=== PATIENT | male | born 1970 | race Caucasian/White ===

== ENCOUNTER 2022-01-20 22:05 | Emergency (ER) | payer SELFPAY ==
[2022-01-20 22:07] VITALS: BP 139/93; PULSE 83; RESP 16; TEMP 36.6; O2SAT 100; BMI 22.8
--- NOTE | 2022-01-21 02:06 | EDS_ITS ---
HPI History of Present Illness Chief Complaint: Other, Pain/Inj Narrative Narrative: Patient is a 51-year-old male who states he does a lot of lifting and pulling at work. He states he is not remember 1 specific injury but noted that he now has pain and swelling in the left lower inguinal region. His states she was doing some research and believes he does have a hernia and secondary to this presents for evaluation. Patient denies any fevers or chills dysuria hematuria or difficulty using the restroom. PFSH PFSH Medical History no medical history Home Medications NK 01/21/22 [History Last Taken Unknown] Allergy/AdvReac Type Severity Reaction Status Date / Time No Known Allergies Allergy Verified 01/20/22 22:09 Social History Smoking Status: Current every day smoker tobacco type: cigarettes ROS ROS ED Constitutional Constitutional ED: Denies chills or fever(s) ENT ENT ED: Denies sore throat Cardiovascular Cardiovascular: Denies chest pain Respiratory/Chest Respiratory/Chest: Denies cough or dyspnea Gastrointestinal Gastrointestinal: Reports abdominal pain; Denies diarrhea, nausea or vomiting Genitourinary Genitourinary ED: Denies dysuria, hematuria or urinary frequency Musculoskeletal Musculoskeletal: Denies back pain or myalgias Integumentary Denies rash Neurologic Neurologic: Denies headache(s) Hematologic/Lymphatic Hematologic/Lymphatic: Denies easy bleeding or easy bruising EXAM Physical Exam Const Vital Signs: 01/20/22 22:07 01/21/22 01:30 Temperature 98 F Temperature Source Temporal Pulse Rate 83 Respiratory Rate 16 Respiratory Effort Normal Respiratory Pattern Normal Blood Pressure 139/93 H Blood Pressure Mean 108 Pulse Ox 100 Oxygen Delivery Method Room Air Positive well nourished and well developed General Appearance ED: well developed HEENT Reports moist mucous membranes Eyes PERRL and EOMs intact bilaterally Neck supple Resp normal respiratory effort and clear to auscultation bilaterally Cardio regular rate and regular rhythm GI non-tender and non-distended Auscultation: normoactive bowel sounds Palpation: soft Narrative: Normal circumcised male without blood or discharge from the urethral meatus. There is no testicular swelling or masses noted no overlying soft tissue changes to suggest trauma or infection. Patient does have a defect in the left inguinal region consistent with inguinal hernia that has reducible intestinal contents present. Extremity normal to inspection Neuro oriented x3 and CN's II-XII intact bilaterally Sensorium / Orientation: alert Psych mental status grossly normal Skin no rashes or lesions noted MDM MDM MDM Narrative Medical decision making narrative: Patient presented to the ER with stable vitals and a history and exam that is c onsistent with a direct inguinal hernia. At this time he has no signs of incarceration no signs of bowel obstruction and no signs of overlying soft tissue infection. Therefore there is no need for further work-up and patient can be discharged home and follow-up with general surgery to discuss need for fixation. Discharge Plan Triage Chief Complaint: Other, Pain/Inj ED Provider: Chicho Kay Dx/Rx/DC Orders Clinical Impression: Direct left inguinal hernia Instructions: ED Hernia (Adult) Prescriptions: No Action NK Stand Alone Forms: ED Work / School Excuse Primary Care Provider: NOT,DEFINED Referrals: Judd Hester MD [Med Staff - Active Staff] - 5-7 Days NOT,DEFINED [Primary Care Provider] - Activity Restrictions/Additional Instructions: Please follow-up with general surgery to discuss need for surgical fixation of your hernia and return to the ER should you have any further concerns Disposition Disposition: Home, Self Care Discharge Date/Time: 01/21/22 02:25
[2022-01-21 02:15] VITALS: BP 122/74; PULSE 74; RESP 17; O2SAT 96
== END 2022-01-21 02:25 | disposition home or self-care (01) ==
LOC: ED 01-21 02:23
PROVIDERS: Emergency Provider Emergency Medicine; Visit Provider Emergency Medicine
DX: K40.90 Unilateral inguinal hernia, without obstruction or gangrene, not specified as recurrent (principal); F17.210 Nicotine dependence, cigarettes, uncomplicated
CPT/HCPCS: 99282

== ENCOUNTER 2022-05-10 21:49 | Emergency (ER) | payer SELFPAY ==
[2022-05-10 21:49] VITALS: BP 173/99; PULSE 82; RESP 16; TEMP 36.7; O2SAT 99; BMI 22.8
--- NOTE | 2022-05-10 22:46 | EX.ED.UPPERE ---
HPI History of Present Illness Chief Complaint: Wound Check Narrative Narrative: 51-year-old male presenting with swelling to the right middle finger on the distal aspect. He states a few days ago he inadvertently poked himself with a sewing needle while he was trying to sew a convertible top onto the car. He states that since that time he had some swelling on the medial aspect of the tip of his right finger. He does report that the whole finger is now starting to swell. No systemic signs or symptoms. Last tetanus unknown. PFSH PFSH Medical History no medical history Home Medications cephalexin 500 mg capsule 500 mg PO Q6 #40 caps 05/10/22 [Rx Last Taken Unknown] Allergy/AdvReac Type Severity Reaction Status Date / Time No Known Allergies Allergy Verified 05/10/22 21:49 Surgical History no surgical history Social History Smoking Status: Current every day smoker tobacco type: cigarettes ROS ROS ED Constitutional Constitutional ED: Denies chills or fever(s) Eyes Eyes: Denies blurry vision or change in vision ENT ENT ED: Denies rhinorrhea or sore throat Cardiovascular Cardiovascular: Denies chest pain or palpitations Respiratory/Chest Respiratory/Chest: Denies cough or dyspnea Gastrointestinal Gastrointestinal: Denies nausea or vomiting Genitourinary Genitourinary ED: Denies dysuria or hematuria Musculoskeletal Musculoskeletal: Reports other Details: Right middle finger pain and swelling ; Denies back pain Integumentary Denies abscess or Abrasions Neurologic Neurologic: Denies headache(s) or paresthesias EXAM Physical Exam Const Vital Signs: 05/10/22 21:49 Temperature 98.0 F Temperature Source Temporal Pulse Rate 82 Respiratory Rate 16 Blood Pressure 173/99 H Blood Pressure Mean 123 Pulse Ox 99 Oxygen Delivery Method Room Air Positive well nourished General Appearance ED: NAD HEENT Reports moist mucous membranes normocephalic and atraumatic Eyes PERRL and EOMs intact bilaterally Resp normal respiratory effort and clear to auscultation bilaterally Auscultation: Negative for rales, rhonchi or wheezes Cardio regular rate and regular rhythm GI non-tender Back/Spine no CVA tenderness Extremity Extremity Narrative: Bilateral hands are covered with grease and dirt. The right hand where the injury occurred in the distal lateral half of the middle finger has tenderness only at the lateral aspect. There is no drainage. There is diffuse swelling of the right middle finger however there is no tenderness to palpation over the flexor side of the right middle finger. No pain with extension. Patient's finger is not held in flexion he is able to range the finger. Neuro oriented x3 and CN's II-XII intact bilaterally Sensorium / Orientation: alert Skin Skin Narrative: As described above MDM MDM MDM Narrative Medical decision making narrative: Patient presenting with likely early felon. There are no signs of flexor other than fairly diffuse swelling. He does not have pain with extension or palpation of the flexor aspect of the right middle finger. His hands are very dirty and I am unable to get these clean because are covered in grease. The patient has been scrubbing these here. I spoke with Dr. Ny regarding the patient who stated he should have him go home and clean his hand all night. He recommended starting on Keflex. He will see him in office tomorrow because likely this finger will need to be drained and it is just too dirty to do tonight. Discussed this with the patient. I updated his tetanus. He started on Keflex with the first dose in the ER. Impression: 1. Felon Discharge Plan Triage Chief Complaint: Wound Check ED Provider: Mac Arguello Dx/Rx/DC Orders Instructions: ED Paronychia of the Finger or Toe Prescriptions: New cephalexin 500 mg capsule 500 mg PO Q6 Qty: 40 0RF Primary Care Provider: Care Physician,No Primary Referrals: Polo Ny MD [Med Staff - Active Staff] - As soon as possible Care Physician,No Primary [Primary Care Provider] - Activity Restrictions/Additional Instructions: As discussed it looks like you have an infection in your middle finger. Also as discussed you are try to clean this up tonight. I spoke with Dr. Ny from orthopedics who will see you tomorrow. He recommended starting on Keflex. Please take antibiotics as prescribed. Disposition Disposition: Home, Self Care
[2022-05-10] MEDS: Cephalexin 250 MG Capsule 500 MG PO (22:51)
[2022-05-10 23:05] VITALS: BP 134/78; PULSE 78; RESP 16; TEMP 36.9; O2SAT 99
== END 2022-05-10 23:07 | disposition home or self-care (01) ==
PROVIDERS: Emergency Provider Student in an Organized Health Care Education/Training Program; Visit Provider Student in an Organized Health Care Education/Training Program
DX: L03.011 Cellulitis of right finger (principal); F17.210 Nicotine dependence, cigarettes, uncomplicated
CPT/HCPCS: 90715; 99282

== ENCOUNTER 2022-05-11 08:22 | Emergency (ER) | payer SELFPAY ==
[2022-05-11 08:23] VITALS: BP 161/101; PULSE 79; RESP 16; TEMP 36.2; O2SAT 97; BMI 22.8
--- NOTE | 2022-05-11 09:07 | EX.ED.UPPERE ---
HPI History of Present Illness HPI Narrative: Patient presents with pain and swelling to his distal phalanx of his right middle finger that became worse today. Patient was seen here last night. Patient states that they did not want to do an incision and drainage last night because his finger was too dirty. Patient was given a dose of Keflex. Patient states he was unable to see the orthopedic surgeon today because of insurance reasons. Patient states his pharmacy is not open yet and he has not picked up his prescription for his Keflex yet. Patient states the pain is been persistent. Patient describes it as sharp. Patient states nothing makes it better nothing makes it worse. Patient denies any paresthesias or weakness. Chief Complaint: Upper Extremity Injury Informant: patient Occured/Mechanism Mechanism/Context: Yes puncture wound Comment: Patient states he was sewing a convertible car roof when the needle went into his finger accidentally. Onset/Context/Timing Onset: Yesterday Context: Gradual Onset Timing: Continuous Quality of Pain: Sharp Location: Right middle finger Worsened by: Nothing Relieved by: Nothing Associated Symptoms Associated Symptoms: Negative for Parasthesia, Weakness or Loss of Funtion PFSH PFSH Medical History no medical history no medical history Home Medications cephalexin 500 mg capsule 500 mg PO Q6 #40 caps 05/10/22 [Rx Last Taken Unknown] Allergy/AdvReac Type Severity Reaction Status Date / Time No Known Allergies Allergy Verified 05/11/22 08:26 Surgical History no surgical history no surgical history Social History Smoking Status: Current every day smoker tobacco type: cigarettes ROS ROS ED Constitutional Constitutional ED: Denies chills or fever(s) Eyes Eyes: Denies blurry vision or change in vision ENT ENT ED: Denies rhinorrhea or sore throat Cardiovascular Cardiovascular: Denies chest pain or palpitations Respiratory/Chest Respiratory/Chest: Denies cough or dyspnea Gastrointestinal Gastrointestinal: Reports nausea; Denies vomiting Genitourinary Genitourinary ED: Denies dysuria or hematuria Musculoskeletal Musculoskeletal: Denies back pain or neck pain Integumentary Reports abscess; Denies rash Neurologic Neurologic: Denies headache(s) or weakness Allergic/Immunologic Allergic/Immunologic ED: Denies mouth swelling or urticaria EXAM Physical Exam Const Vital Signs: 05/11/22 08:23 Temperature 97.1 F L Temperature Source Temporal Pulse Rate 79 Respiratory Rate 16 Blood Pressure 161/101 H Blood Pressure Mean 121 Pulse Ox 97 Oxygen Delivery Method Room Air Positive well nourished and well developed General Appearance ED: well developed and NAD HEENT Reports moist mucous membranes normocephalic and atraumatic Neck full ROM Extremity Extremity Narrative: There is edema and fluctuance along the nail margin of the distal phalanx of the right middle finger. There is some mild fluctuance. There is no active discharge or drainage. There is full range of motion of the MP, PIP, and DIP joints. There are no sensory deficits noted. Capillary refill is less than 2 seconds in all digits. Radial pulses are equal bilaterally. Neuro oriented x3, CN's II-XII intact bilaterally, moves all extremities, no focal motor deficits and no sensory deficits noted Sensorium / Orientation: alert Motor Exam: strength 5/5 throughout MDM MDM MDM Narrative Medical decision making narrative: Patient was given a dose of Keflex here. The right middle finger was cleaned and anesthetized 1% lidocaine via digital block. The wound was opened with a #11 blade scalpel using a small linear incision. Moderate to large amount of purulent drainage was expressed. Patient tolerated the procedure well. Bacitracin dressing was applied. Patient was instructed to continue his Keflex as prescribed. Patient was instructed continue Tylenol or ibuprofen as needed for pain. Patient was instructed to follow-up with his primary care physician in 5 to 7 days. Patient understood and was agreeable with the plan. All questions were answered. Procedures Other Procedures Procedure(s): The area was cleaned with chlorhexidine prep. The area was anesthetized with 1% plain lidocaine via digital block. A small linear incision was made using an 11 blade scalpel. A moderate to large amount of purulent drainage was expressed. The wound was left open. Bacitracin dressing was applied. Patient tolerated the procedure well. Discharge Plan Triage Chief Complaint: Upper Extremity Injury ED Provider: Delmer Warren Dx/Rx/DC Orders Clinical Impression: Paronychia of right middle finger Instructions: ED Paronychia of the Finger or Toe Prescriptions: No Action cephalexin 500 mg capsule 500 mg PO Q6 Qty: 40 0RF Primary Care Provider: Care Physician,No Primary Referrals: Yenny Bosch [Non-Staff] - 5-7 Days Care Physician,No Primary [Primary Care Provider] - Disposition Disposition: Home, Self Care Discharge Date/Time: 05/11/22 10:49
[2022-05-11] MEDS: Lidocaine 1% (20 ml mdv) 20 ML Vial INFILT (09:27)
[2022-05-11] MEDS: Cephalexin 500 MG Capsule PO (09:27)
[2022-05-11] MEDS: Acetaminophen 500 MG Tablet 1000 MG PO (09:27)
[2022-05-11 10:49] VITALS: BP 139/88; PULSE 70; RESP 16; O2SAT 95
== END 2022-05-11 10:49 | disposition home or self-care (01) ==
PROVIDERS: Emergency Provider Emergency Medicine; Visit Provider Emergency Medicine
DX: L03.011 Cellulitis of right finger (principal); F17.210 Nicotine dependence, cigarettes, uncomplicated
CPT/HCPCS: 99283

== ENCOUNTER 2022-09-06 19:21 | Emergency (ER) | payer SELFPAY ==
[2022-09-06 19:22] VITALS: BP 149/94; PULSE 90; RESP 16; TEMP 36.4; O2SAT 100; BMI 22.4
--- NOTE | 2022-09-06 19:55 | EDS_ITS ---
HPI History of Present Illness Chief Complaint: Abscess Informant: patient Onset/Context/Timing Onset: Days (3-4) Context: Gradual Onset Timing: Continuous Quality: Sharp Location: Left lower abdomen/inguinal area Worsened by: Nothing Relieved by: Nothing Narrative Narrative: Patient presents with abscess to his lower abdominal wall that has been getting worse over the last 3 to 4 days. Patient describes the pain as sharp. Patient states nothing makes it worse and nothing makes it better. Patient states that the pain has been constant over the last 3 to 4 days. Patient denies any fevers or chills. Patient states that it started draining today. Patient denies any nausea or vomiting. Patient denies any diarrhea. Patient denies any urinary complaints. PFSH PFSH Medical History no medical history no medical history Home Medications cephalexin 500 mg capsule 500 mg PO Q6 #40 caps 09/06/22 [Rx Last Taken Unknown] Allergy/AdvReac Type Severity Reaction Status Date / Time No Known Allergies Allergy Verified 09/06/22 19:23 Surgical History no surgical history no surgical history Social History Smoking Status: Current every day smoker tobacco type: cigarettes ROS ROS ED Constitutional Constitutional ED: Denies chills or fever(s) Eyes Eyes: Denies blurry vision or change in vision ENT ENT ED: Denies rhinorrhea or sore throat Cardiovascular Cardiovascular: Denies chest pain or palpitations Respiratory/Chest Respiratory/Chest: Denies cough or dyspnea Gastrointestinal Gastrointestinal: Denies nausea or vomiting Genitourinary Genitourinary ED: Denies dysuria or hematuria Musculoskeletal Musculoskeletal: Denies back pain or neck pain Integumentary Reports abscess; Denies rash Neurologic Neurologic: Reports headache(s); Denies weakness Allergic/Immunologic Allergic/Immunologic ED: Denies mouth swelling or urticaria EXAM Physical Exam Const Vital Signs: 09/06/22 19:22 Temperature 97.5 F L Temperature Source Temporal Pulse Rate 90 Respiratory Rate 16 Blood Pressure 149/94 H Blood Pressure Mean 112 Pulse Ox 100 Oxygen Delivery Method Room Air Positive well nourished and well developed General Appearance ED: well developed and NAD HEENT Reports moist mucous membranes Neck supple and no JVD GI GI Narrative: There is mild left lower abdominal wall tenderness around the abscess in the left lower quadrant/inguinal area. There is some erythema and fluctuance. There is some purulent drainage noted. There is no other abdominal tenderness noted. There is no rebound or guarding noted. Palpation: soft Extremity normal to inspection Neuro oriented x3, CN's II-XII intact bilaterally and no sensory deficits noted Sensorium / Orientation: alert Motor Exam: strength 5/5 throughout Psych mental status grossly normal MDM MDM MDM Narrative Medical decision making narrative: Patient was advised that this is an abscess to the abdominal skin. I do not feel that this is anything intra-abdominal. There is some purulent drainage noted from the area. Further purulent drainage was expressed. Since it is already open and draining, I do not feel incision and drainage is necessary at this time. Bacitracin dressing was applied. Patient was given a dose of Keflex here. Patient was given a prescription for Keflex. Patient was instructed to continue using warm compresses to the area. Patient was instructed to continue to keep the area clean. Patient was instructed to follow-up with his primary care physician in 5 to 7 days. Patient understood and was agreeable with the plan. All questions were answered. Discharge Plan Triage Chief Complaint: Abscess ED Provider: Delmer Warren Dx/Rx/DC Orders Clinical Impression: Abscess of skin of abdomen Instructions: ED Abscess Antibiotic Treatment Only, ED Cellulitis Prescriptions: Continued cephalexin 500 mg capsule 500 mg PO Q6 Qty: 40 0RF Primary Care Provider: Care Physician,No Primary Referrals: Nicole Gan MD [Med Staff - Service Electrician] - 5-7 Days Care Physician,No Primary [Primary Care Provider] - Disposition Disposition: Home, Self Care
[2022-09-06] MEDS: Cephalexin 500 MG Capsule PO (20:09)
== END 2022-09-06 20:44 | disposition home or self-care (01) ==
LOC: ED 20:08
PROVIDERS: Emergency Provider Emergency Medicine; Visit Provider Emergency Medicine
DX: L02.211 Cutaneous abscess of abdominal wall (principal); F17.210 Nicotine dependence, cigarettes, uncomplicated
CPT/HCPCS: 99283

== ENCOUNTER 2023-06-19 15:05 | Emergency (ER) | payer SELFPAY ==
[2023-06-19 15:06] VITALS: BP 171/111; PULSE 84; RESP 18; TEMP 36.4; O2SAT 100; BMI 21.7
--- NOTE | 2023-06-19 15:34 | EX.ED.DYSGE1 ---
HPI History of Present Illness Chief Complaint: Other, Pain/Inj Informant: patient Narrative Narrative: Known left hernia, intermittent pain recently more frequent. 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 Normal bowel movements. No fevers. No urinary symptoms. Last went out this morning. He was able to get it back in. States when he seen in the ED was referred to general surgeon Dr. Hester, however on follow-up he was on meth at that time he was told he needs to stop his drug before anything would be done. He has not followed again. Prior similar symptoms: Yes PFSH PFSH Home Medications cephalexin 500 mg capsule 500 mg PO Q6 #40 caps 09/06/22 [Rx Last Taken Unknown] Allergy/AdvReac Type Severity Reaction Status Date / Time No Known Allergies Allergy Verified 06/19/23 15:06 Social History Smoking Status: Current every day smoker tobacco type: cigarettes ROS ROS ED Constitutional Constitutional ED: Denies chills, fever(s) or sweats Eyes Eyes: Denies change in vision ENT ENT ED: Denies dysphagia or sore throat Cardiovascular Cardiovascular: Denies chest pain, leg edema, palpitations or racing heartbeat Respiratory/Chest Respiratory/Chest: Denies cough, dyspnea or dyspnea on exertion Gastrointestinal Gastrointestinal: Denies abdominal pain, diarrhea, nausea or vomiting Genitourinary Genitourinary ED: Reports other Details: Hernia ; Denies dysuria, hematuria or urinary frequency Musculoskeletal Musculoskeletal: Denies back pain, extremity pain or neck pain Integumentary Denies rash or wounds Neurologic Neurologic: Denies headache(s), paresthesias or weakness EXAM Physical Exam Const Vital Signs: 06/19/23 15:06 06/19/23 15:25 Temperature 97.6 F L Temperature Source Temporal Pulse Rate 84 Respiratory Rate 18 Respiratory Effort Normal Non-Labored Respiratory Pattern Normal Blood Pressure 171/111 H Blood Pressure Mean 131 Pulse Ox 100 Oxygen Delivery Method Room Air Positive well nourished and well developed General Appearance ED: well developed and NAD HEENT Reports moist mucous membranes normocephalic and atraumatic Eyes PERRL, EOMs intact bilaterally and conjunctivae normal General Eye ED: Yes normal appearance of both eyes Neck no lymphadenopathy and supple General: Negative for tenderness Chest Wall Chest: Negative for tenderness Resp normal respiratory effort and normal air movement Effort and Inspection: symmetric chest movement; Negative for respiratory distress Cardio regular rate, regular rhythm and no murmurs Peripheral Pulses: pulses 2+ throughout GI normal to inspection, nondistended, normoactive bowel sounds and non-tender Palpation: Negative for guarding or rebound tenderness present Narrative: No scrotal tenderness. There is left inguinal hernia with standing, this was reducible. No discomfort. Back/Spine no CVA tenderness and no thoracic nor lumbar tenderness Extremity normal to inspection General Extremety ED: Negative for edema or tenderness General Extremity: Negative for edema Neuro oriented x3 and no sensory deficits noted Sensorium / Orientation: awake and alert Skin no rashes or lesions noted and no wounds MDM MDM MDM Narrative Medical decision making narrative: Interventions / MDM: Differential diagnosis: Indirect reducible inguinal hernia. Diagnosis considered but do not suspect: No clinical incarceration or strangulation of hernia. My EKG interpretation: N/A Imaging independently reviewed and interpreted by myself: N/A External documents reviewed: N/A Test considered but not ordered:N/A ED course: Patient nontoxic, reducible left inguinal hernia. He states he has a tobacco history he has not done meth in a month. He is trying to clean up his life. He is not on anticoagulants. Discussed with him outpatient follow-up with surgery for repair. I discussed with on-call surgeon Dr. Bush, discussed his history, he does confirm that patient typically will need 6 weeks off after work to recover this was discussed with him he understands. Discussed signs of incarceration or strangulation to return to the ED. Otherwise outpatient follow-up. Re-evaluation: stable Disposition discussed with patient/family/significant other: Patient Case discussed with consulting clinician: General surgery This note was generated with [employer] dictation software. It may contain incorrect words, spelling, and punctuation that were not noted in checking the note before signing. Discharge Plan Triage Chief Complaint: Other, Pain/Inj ED Provider: Tim Hatch Dx/Rx/DC Orders Clinical Impression: Reducible left inguinal hernia, Hernia, inguinal, left Instructions: Hernia Repair Surgery, ED Hernia (Adult) Prescriptions: No Action cephalexin 500 mg capsule 500 mg PO Q6 Qty: 40 0RF Stand Alone Forms: ED Work / School Excuse Primary Care Provider: Care Physician,No Primary Referrals: Imer Bush MD [Med Staff - Active Staff] - Care Physician,No Primary [Primary Care Provider] - Activity Restrictions/Additional Instructions: Discussed with Dr. Bush follow-up with him. If the hernia bulges out and you are unable to reduce return directly to the ED. You would typically need 6 weeks off from work after surgery. Therefore make plans for this after your follow-up. Disposition Disposition: Home, Self Care
== END 2023-06-19 16:05 | disposition home or self-care (01) ==
LOC: ED 16:10
PROVIDERS: Emergency Provider Emergency Medicine; Visit Provider Emergency Medicine
DX: K40.90 Unilateral inguinal hernia, without obstruction or gangrene, not specified as recurrent (principal); F17.210 Nicotine dependence, cigarettes, uncomplicated
CPT/HCPCS: 99282